=== PATIENT | female | born 1995 | race Caucasian/White ===

== ENCOUNTER 2017-01-23 18:53 | Emergency (ER) | payer OTHER ==
[2017-01-23 19:55] VITALS: BP 153/70
--- NOTE | 2017-01-23 20:15 | EDM.PDOC ---
ED HPI ENT - General Chief Complaint: ENT Problem Stated Complaint: STREP Time Seen by Provider: 01/23/17 20:00 Source: Reports: Patient, Family History Limitations: Reports: No limitations - History of Present Illness INITIAL COMMENTS - FREE TEXT/NARRATIVE: 21-year-old female with a sore throat for the past 2 days, now losing her voice and getting some neck discomfort. No fevers or chills but she was exposed to strep throat last week. Denies other cold symptoms such as runny nose or cough. Location: Reports: throat Associated symptoms: Denies: shortness of breath, malaise, nausea/vomiting - Related Data Allergies/ADRs: Allergies Allergy/AdvReac Type Severity Reaction Status Date / Time No Known Allergies Allergy Verified 01/23/17 19:56 Home Meds: Home Meds Cetirizine HCl [Zyrtec] 10 mg PO ASDIRECTED 07/31/15 [History] Fluticasone Propionate [Flonase] 2 spray NASBOTH DAILY 07/31/15 [History] Past Medical History - Past Surgical History HEENT Surgical History: Reports: Oral surgery Social & Family History - Tobacco Use Smoking Status *Q: Never Smoker - Recreational Drug Use Recreational Drug Use: No ED ROS ENT - Review of Systems Review Of Systems: See Below Constitutional: Denies: fever, chills HEENT: Reports: Throat pain, Other (Losing her voice) Respiratory: Denies: Shortness of Breath, Cough Cardiovascular: Denies: Chest pain GI/Abdominal: Denies: Abdominal pain, Nausea, Vomiting ED EXAM, ENT - Physical Exam Exam: See Below Exam Limited By: No limitations General Appearance: alert, no apparent distress Mouth/Throat: Other (Some pharyngeal erythema, no exudate) Head: atraumatic Neck: No: lymphadenopathy (R), lymphadenopathy (L) Respiratory/Chest: no respiratory distress Course - Vital Signs Last Recorded V/S: Last Vital Signs Temp 97.9 F 01/23/17 19:53 Pulse 67 01/23/17 19:53 Resp 14 01/23/17 19:53 BP 153/70 H 01/23/17 19:53 Pulse Ox 100 01/23/17 19:53 - Orders/Labs/Meds Orders: Active Orders 24 hr Category Date Time Status CULTURE STREP A CONFIRMATION [RM] Routine Lab 01/23/17 20:13 Results STREP SCRN A RAPID W CULT CONF [RM] Routine Lab 01/23/17 20:13 Results - Re-Assessments/Exams Free Text/Narrative Re-Assessment/Exam: 01/23/17 20:14 A rapid strep was obtained. 01/23/17 20:36 Strep was negative but with the exposure she wanted to be covered until the culture results. She'll be placed on amoxicillin 503 times daily, and will need to take it for 7 full days if the culture is positive. Departure - Departure Time of Disposition: 21:00 Disposition: Home, Self-Care 01 Condition: good Clinical Impression: Pharyngitis Qualifiers: Pharyngitis/tonsillitis etiology: other specified organisms Qualified Code(s): J02.8 - Acute pharyngitis due to other specified organisms Instructions: Pharyngitis, [id number] Referrals: PCP,None [Primary Care Provider] - Forms: ED Department Discharge Care Plan Goals: Take antibiotic 3 times daily for at least 7 days if the culture is positive or if you are improving rapidly. Rest, fluids, ibuprofen should help. Return if worsening or concerns. - My Orders Last 24 Hours: My Active Orders 01/23/17 20:13 CULTURE STREP A CONFIRMATION [RM] Routine STREP SCRN A RAPID W CULT CONF [RM] Routine - Assessment/Plan Last 24 Hours: My Active Orders 01/23/17 20:13 CULTURE STREP A CONFIRMATION [RM] Routine STREP SCRN A RAPID W CULT CONF [RM] Routine
== END 2017-01-23 21:13 | disposition home or self-care (01) ==
LOC: JP.ED 18:53
DX: J02.8 Acute pharyngitis due to other specified organisms (principal); Z98.890 Other specified postprocedural states
CPT/HCPCS: 87081; 87430; 99283

== ENCOUNTER 2017-03-20 12:42 | Emergency (ER) | payer OTHER ==
[2017-03-20 12:59] VITALS: BP 158/85
[2017-03-20] MEDS ORDERED: Ibuprofen 600 MG Tab PO ONE (13:15)
--- NOTE | 2017-03-20 13:19 | EDM.PDOC ---
ED HPI GENERAL MEDICAL PROBLEM - General Chief Complaint: Lower Extremity Injury/Pain Stated Complaint: HURT LT FOOT/ANKLE Time Seen by Provider: 03/20/17 13:00 Source of Information: Reports: Patient, RN Notes Reviewed History Limitations: Reports: No Limitations - History of Present Illness INITIAL COMMENTS - FREE TEXT/NARRATIVE: Mildred is an otherwise healthy 21 year old female who presents to the ED today with c/o left ankle pain swelling, patient rolled her ankle on Tuesday while in [place]. She has been taking ibuprofen, pain with weight bearing. Denies any other injuries. Duration: Day(s): (2) - Related Data Allergies Allergy/AdvReac Type Severity Reaction Status Date / Time No Known Allergies Allergy Verified 01/23/17 19:56 Home Meds: Home Meds Cetirizine HCl [Zyrtec] 10 mg PO ASDIRECTED 07/31/15 [History] Fluticasone Propionate [Flonase] 2 spray NASBOTH DAILY 07/31/15 [History] Past Medical History Musculoskeletal History: Reports: Other (See Below) Other Musculoskeletal History: l ANKLE SWOLLEN FELL tuesday NIGHT Dermatologic History: Reports: Other (See Below) Other Dermatologic History: SWOLLEN l ANKLE - Past Surgical History HEENT Surgical History: Reports: Oral Surgery Social & Family History - Tobacco Use Smoking Status *Q: Never Smoker Second Hand Smoke Exposure: No - Caffeine Use Caffeine Use: Reports: None - Recreational Drug Use Recreational Drug Use: No Review of Systems - Review of Systems Review Of Systems: ROS reveals no pertinent complaints other than HPI. ED EXAM, GENERAL - Physical Exam Exam: See Below Exam Limited By: No Limitations General Appearance: Alert, WD/WN, No Apparent Distress Head: Atraumatic Respiratory/Chest: No Respiratory Distress Cardiovascular: Regular Rate, Rhythm Peripheral Pulses: 2+: Posterior Tibial (L), Dorsalis Pedis (L) Extremities: Limited Range of Motion, Other (swelling to medial and lateral malleolar regions of left ankle. pules intact, cap refill and sensation normal) Neurological: Alert, Oriented, CN II-XII Intact Course - Vital Signs Text/Narrative:: Mildred is a 21 year old female who presents to the ED today with c/o left ankle pain after rolling her ankle on Tuesday. Please refer to HPI and focused exam. Patient was given ibuprofen here in the ED. X-ray on my review is negative for fracture. Likely ligamentous strain vs. tear as patient is quite swollen. Patient placed in oli wrap and velcro splint, recommend crutches for non-weight bearing for the next week and follow up with PCP in one week for re-evaluation, if no improvement at that time, may need an MRI. Ibuprofen scheduled, Tylenol as needed. RICE. Patient taken off of work until seen by PCP in one week. Reasons to return to the ED discussed. Patient discharged in stable condition. Last Recorded V/S: Last Vital Signs Temp 37.5 C 03/20/17 12:57 Pulse 108 H 03/20/17 12:57 Resp 20 03/20/17 12:57 BP 158/85 H 03/20/17 12:57 Pulse Ox - Orders/Labs/Meds Orders: Active Orders 24 hr Category Date Time Status Ankle Min 3V Lt [CR] Stat Exams 03/20/17 13:14 Taken Meds: Medications Discontinued Medications Generic Name Dose Route Start Last Admin Trade Name Freq PRN Reason Stop Dose Admin Ibuprofen 600 mg 03/20/17 13:15 03/20/17 13:26 Motrin PO 03/20/17 13:16 600 mg ONETIME ONE Administration Departure - Departure Time of Disposition: 14:15 Disposition: Home, Self-Care 01 Condition: Good Clinical Impression: Ankle sprain Qualifiers: Encounter type: initial encounter Involved ligament of ankle: unspecified ligament Laterality: left Qualified Code(s): S93.402A - Sprain of unspecified ligament of left ankle, initial encounter - Discharge Information Instructions: Ankle Sprain, [id number], Crutch Use, [id number] Forms: ED Department Discharge Additional Instructions: Mildred, please use crutches to avoid full weight bearing for the next week. Take ibuprofen scheduled, 600 mg every 6 hours for the next 4 days. You can take Tylenol as needed. Rest, ice and elevate frequently throughout the day. Follow up with your primary care provider in one week. - My Orders Last 24 Hours: My Active Orders 03/20/17 13:14 Ankle Min 3V Lt [CR] Stat - Assessment/Plan Last 24 Hours: My Active Orders 03/20/17 13:14 Ankle Min 3V Lt [CR] Stat
--- NOTE | 2017-03-21 09:28 | CR ---
Ankle Min 3V Lt HISTORY: Trauma COMPARISON: None FINDINGS: Soft tissue swelling medially and laterally. There is no cortically displaced fracture no dislocation.
== END 2017-03-20 14:18 | disposition home or self-care (01) ==
LOC: JP.ED 12:42
DX: S93.402A Sprain of unspecified ligament of left ankle, initial encounter (principal); Z79.899 Other long term (current) drug therapy; Z98.890 Other specified postprocedural states; X58.XXXA Exposure to other specified factors, initial encounter
CPT/HCPCS: 73610; 99284; A9270

== ENCOUNTER 2018-10-22 09:06 | Emergency (ER) | payer OTHER ==
[2018-10-22 09:21] VITALS: BP 147/100
--- NOTE | 2018-10-22 10:00 | EDM.PDOC ---
ED HPI GENERAL MEDICAL PROBLEM - General Chief Complaint: ENT Problem Stated Complaint: SORE THROAT Time Seen by Provider: 10/22/18 09:54 Source of Information: Reports: Patient History Limitations: Reports: No Limitations - History of Present Illness INITIAL COMMENTS - FREE TEXT/NARRATIVE: This lady comes in with a sore throat since yesterday. She denies fever she does have a little bit of body aches. There is no vomiting. She's using some Sucrets. 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 Throat Pain Score (Numeric/FACES): 8 - Related Data Allergies Allergy/AdvReac Type Severity Reaction Status Date / Time No Known Allergies Allergy Verified 01/23/17 19:56 Home Meds: Home Meds NK [No Known Home Meds] 10/22/18 [History] Past Medical History Musculoskeletal History: Reports: Other (See Below) Other Musculoskeletal History: l ANKLE SWOLLEN FELL tuesday NIGHT Dermatologic History: Reports: Other (See Below) Other Dermatologic History: SWOLLEN l ANKLE - Past Surgical History HEENT Surgical History: Reports: Oral Surgery Social & Family History - Tobacco Use Smoking Status *Q: Never Smoker - Caffeine Use Caffeine Use: Reports: Coffee, Energy Drinks, Soda - Recreational Drug Use Recreational Drug Use: No ED ROS ENT - Review of Systems Review Of Systems: ROS reveals no pertinent complaints other than HPI. ED EXAM, ENT - Physical Exam Exam: See Below Exam Limited By: No Limitations General Appearance: Alert, No Apparent Distress, Obese Eye Exam: Bilateral Eye: Normal Inspection Mouth/Throat: Tonsillar Erythema, Tonsillar Exudates, Tonsillar Swelling Head: Atraumatic (Very mild) Neck: Normal Inspection Respiratory/Chest: Lungs Clear Cardiovascular: Regular Rate, Rhythm, No Murmur, Tachycardia Neurological: Alert Psychiatric: Normal Affect Skin: Warm, Dry Course - Vital Signs Last Recorded V/S: Last Vital Signs Temp 36.7 C 10/22/18 09:30 Pulse 138 H 10/22/18 09:30 Resp 15 10/22/18 09:30 BP 147/100 H 10/22/18 09:30 Pulse Ox 95 10/22/18 09:30 Departure - Departure Time of Disposition: 09:58 Disposition: Home, Self-Care 01 Condition: Fair Clinical Impression: Strep pharyngitis - Discharge Information Referrals: PCP,None [Primary Care Provider] - Additional Instructions: Take penicillin VK 500 mg 4 times per day for 10 days. You will no longer be contagious after 24 hours on antibiotics Tylenol works well for sore throat pain fever and body aches. Your blood pressure and pulse rate were elevated here but this is probably due to the illness. It would be a good idea to get your blood pressure checked again once you're well.
== END 2018-10-22 10:11 | disposition home or self-care (01) ==
LOC: JP.ED 09:06
DX: J02.0 Streptococcal pharyngitis (principal)
CPT/HCPCS: 87430; 99283